=== PATIENT | female | born 1965 | race Hispanic/Latino ===

== ENCOUNTER 2017-07-14 22:55 | Emergency (ER) | payer BC, OTHER ==
[2017-07-15] MEDS ORDERED: DEXTROSE 50%-WATER 50 ML DISP.SYRIN IV ONE (01:35)
== END 2017-07-15 06:01 | disposition home or self-care (01) ==
LOC: EDH 22:55
DX: T38.3X1A Poisoning by insulin and oral hypoglycemic [antidiabetic] drugs, accidental (unintentional), initial encounter (principal); E11.9 Type 2 diabetes mellitus without complications; E07.9 Disorder of thyroid, unspecified; E78.5 Hyperlipidemia, unspecified; I10 Essential (primary) hypertension; Z90.710 Acquired absence of both cervix and uterus; Z79.4 Long term (current) use of insulin; Y92.89 Other specified places as the place of occurrence of the external cause
CPT/HCPCS: 82948 ×4; 96374; 99284; J7070